=== PATIENT | female | born 1955 | race Caucasian/White ===

== ENCOUNTER 2017-08-31 10:24 | Outpatient (CLI) | payer OTHER ==
[~2017-08-31 10:24] MED LIST: AMBIEN10 MG; AMIODARONE HCL200 MG PO; ANUSOL-HC25 MG RC; ANUSOL-HC30 G2 RC; CIPRO500 MG PO; FLAGYL375 MG PO; METRONIDAZOLE500 MG PO; NORVASC10 MG; ONGLYZA5 MG; PREDNISONE10 MG PO; PREDNISONE20 MG PO; PROTONIX40 MG PO; TOPROL XL25 M1 PO; ZOLPIDEM TARTRAT5 MG PO
== END 2017-08-31 10:33 | disposition home or self-care (01) ==
LOC: RAD 501 10:24
DX: M17.11 Unilateral primary osteoarthritis, right knee (principal); M17.12 Unilateral primary osteoarthritis, left knee; M19.071 Primary osteoarthritis, right ankle and foot

== ENCOUNTER 2017-09-02 11:46 | Emergency (ER) | payer OTHER ==
[~2017-09-02] VITALS: Ht 154.9 cm; Wt 68.0 kg
[2017-09-02] MEDS ORDERED: VASOTEC20 M1 (12:14)
== END 2017-09-02 18:58 | disposition home or self-care (01) ==
LOC: ER 11:46
DX: N39.0 Urinary tract infection, site not specified (principal); M54.5 Low back pain

== ENCOUNTER 2017-10-01 19:34 | Emergency (ER) | payer OTHER ==
[~2017-10-01] VITALS: Ht 154.9 cm; Wt 68.9 kg
[~2017-10-01 19:34] MED LIST changes: +VASOTEC20 M1
[2017-10-01] MEDS ORDERED: HUMIRA10 MG/0.2 (19:44)
== END 2017-10-01 21:56 | disposition home or self-care (01) ==
LOC: ER 19:34
DX: I16.0 Hypertensive urgency (principal)

== ENCOUNTER 2018-07-11 10:34 | Emergency (ER) | payer OTHER ==
[~2018-07-11] VITALS: Ht 157.5 cm; Wt 67.6 kg
[~2018-07-11 10:34] MED LIST changes: +HUMIRA10 MG/0.2
[2018-07-11] MEDS ORDERED: AIRBORNE EFFER1 EACH PO (15:25)
== END 2018-07-11 15:40 | disposition home or self-care (01) ==
LOC: ER 10:34
DX: B34.9 Viral infection, unspecified (principal); R00.2 Palpitations; J11.1 Influenza due to unidentified influenza virus with other respiratory manifestations

== ENCOUNTER 2018-11-28 12:10 | Emergency (ER) | payer OTHER ==
[~2018-11-28] VITALS: Ht 157.5 cm; Wt 63.5 kg
[~2018-11-28 12:10] MED LIST changes: +AIRBORNE EFFER1 EACH PO
== END 2018-11-28 21:07 | disposition home or self-care (01) ==
LOC: ER 12:10
DX: K50.911 Crohn's disease, unspecified, with rectal bleeding (principal); K43.2 Incisional hernia without obstruction or gangrene

== ENCOUNTER 2019-01-22 07:12 | Outpatient (CLI) | payer OTHER | END 2019-01-22 07:27 | disposition home or self-care (01) | LOC: NUCLEAR 07:12 | DX: I20.9 Angina pectoris, unspecified (principal) | CPT/HCPCS: 78452; 93017; A9500; J0153 ==

== ENCOUNTER 2019-07-04 10:42 | Emergency (ER) | payer OTHER ==
[~2019-07-04] VITALS: Ht 157.5 cm; Wt 49.9 kg
== END 2019-07-04 19:00 | disposition home or self-care (01) ==
LOC: ER 10:42
DX: R19.7 Diarrhea, unspecified (principal)

== ENCOUNTER 2020-02-06 11:51 | Emergency (ER) | payer OTHER ==
[~2020-02-06] VITALS: Ht 157.5 cm; Wt 37.2 kg
== END 2020-02-06 17:49 | disposition home or self-care (01) ==
LOC: ER 11:51
DX: R42 Dizziness and giddiness (principal); D64.89 Other specified anemias; Z20.828 Contact with and (suspected) exposure to other viral communicable diseases

== ENCOUNTER 2020-05-07 10:28 | Emergency (ER) | payer OTHER ==
[~2020-05-07] VITALS: Ht 157.5 cm; Wt 44.0 kg
[2020-05-07] MEDS ORDERED: FAMOTIDINE40 MG PO (11:11)
== END 2020-05-07 16:30 | disposition home or self-care (01) ==
LOC: ER 10:28
DX: R11.2 Nausea with vomiting, unspecified (principal); Z03.818 Encounter for observation for suspected exposure to other biological agents ruled out; Z93.2 Ileostomy status

== ENCOUNTER 2021-07-20 07:47 | Outpatient (CLI) | payer OTHER ==
[~2021-07-20 07:47] MED LIST changes: +FAMOTIDINE40 MG PO
== END 2021-07-20 07:54 | disposition home or self-care (01) ==
LOC: SONOGRAMA 07:47
PROVIDERS: ATTEND Obstetrics & Gynecology
DX: R10.2 Pelvic and perineal pain (principal); R19.09 Other intra-abdominal and pelvic swelling, mass and lump

== ENCOUNTER 2022-08-10 10:03 | Outpatient (CLI) | payer OTHER | END 2022-08-10 10:09 | disposition home or self-care (01) | LOC: RAD 10:03 | PROVIDERS: ATTEND Internal Medicine Rheumatology | DX: M19.071 Primary osteoarthritis, right ankle and foot (principal); M65.871 Other synovitis and tenosynovitis, right ankle and foot ==

== ENCOUNTER 2023-09-06 14:28 | Emergency (ER) | payer OTHER ==
[~2023-09-06] VITALS: Ht 167.6 cm; Wt 68.0 kg
[2023-09-06] MEDS ORDERED: RINGERS SOLUTION,LACTATED 1,000 ML IV STA (18:50)
[2023-09-06 19:20] LABS: HEMATOCRIT 27.8 % (36.0-45.00); MEAN CELL VOLUME 84.3 fL (80.00-100.00); MEAN CORPUSCULAR HGB CONC 33.2 g/dl (32.0-36.0); PLATELET COUNT 301 K/uL (150-450); RED CELL DISTRIBUTION WIDTH 15.6 % (11.5-14.5)
[2023-09-06 19:25] LABS: ERYTHROCYTE SEDIMENTATION RATE 108 mm/hr; HEMOGLOBIN 9.2 g/dL (12.0-15.00); MEAN CORPUSCULAR HEMOGLOBIN 27.8 pg (27.00-32.0)
[2023-09-06 19:38] LABS: INR 1.14; PARTIAL THROMBOPLASTIN TIME 32.3 SECONDS (22.0-34.0); PROTHROMBIN TIME 11.9 SECONDS (9.0-11.5)
[2023-09-06 19:40] LABS: ALBUMIN 3.1 gm/dL (3.4-5.0); BILIRUBIN TOTAL 0.58 mg/dL (0.3-1.2); CALCIUM 9.1 mg/dL (8.5-10.1); CREATININE SERUM 0.85 mg/dL (0.55-1.02); GFR 66.12; GLOBULINA 4.2 G/DL (2.4-3.5); POTASSIUM 4.45 mEq/L (3.5-5.1); TOTAL PROTEIN 7.3 gm/dL (6.4-8.2)
[2023-09-07] MEDS ORDERED: METHYLPREDNISOLONE SOD SUCC 125 MG VIAL IV SCH (02:30)
[2023-09-07] MEDS ORDERED: WATER FOR INJ.,BACTERIOSTATIC 30 ML VIAL IJ ONE (02:51)
[2023-09-07] MEDS ORDERED: METHYLPREDNISOLONE SOD SUCC 125 MG VIAL ONE (02:51)
[2023-09-07] MEDS ORDERED: 0.9 % SODIUM CHLORIDE 1,000 ML IV SCH (04:45)
[2023-09-07 06:19] LABS: HEMATOCRIT 26.2 % (36.0-45.00); MEAN CELL VOLUME 83.4 fL (80.00-100.00); MEAN CORPUSCULAR HGB CONC 33.8 g/dl (32.0-36.0); PLATELET COUNT 278 K/uL (150-450); RED BLOOD COUNT 3.14 M/uL (4.00-6.00); RED CELL DISTRIBUTION WIDTH 15.5 % (11.5-14.5)
[2023-09-07 06:23] LABS: HEMOGLOBIN 8.8 g/dL (12.0-15.00)
[2023-09-07] MEDS ORDERED: ORAPRED ODT10 MG PO (08:02)
[2023-09-07] MEDS ORDERED: INTEGRA PLUS C1 EACH PO (08:06)
== END 2023-09-07 08:36 ==
LOC: ER 14:29
PROVIDERS: General Practice
DX: K52.9 Noninfective gastroenteritis and colitis, unspecified (principal); Z88.5 Allergy status to narcotic agent
CPT/HCPCS: 36415; 74176; 96365; 96366; 99284; J3490; J7030